=== PATIENT | male | born 1975 | race American Indian/Alaskan Native ===

== ENCOUNTER 2017-11-20 01:55 | Emergency (ER) | payer SELFPAY ==
[2017-11-20] MEDS ORDERED: CATAPRES ONE (03:00)
[2017-11-20] MEDS ORDERED: CATAPRES PO ONE ×2 (03:05→03:44)
[2017-11-20 03:33] LABS: Basophils % (Auto) 0.7 % (0.0-1.8); Eosinophils # (Auto) 0.2 K/mm3 (0.0-0.4); Eosinophils % (Auto) 2.6 % (0.0-4.3); Hematocrit 41.3 % (35.5-45.6); Hemoglobin 13.5 gm/dl (11.8-15.2); Lymphocytes # (Auto) 1.9 K/mm3 (1.2-5.4); Lymphocytes % (Auto) 27.1 % (13.4-35.0); Mean Corpuscular HGB Conc 33 % (32-34); Mean Corpuscular Volume 79 fl (84-94); Monocytes # (Auto) 0.8 K/mm3 (0.0-0.8); Monocytes % (Auto) 11.4 % (0.0-7.3); Platelet Count 177 K/mm3 (140-440); Red Blood Count 5.25 M/mm3 (3.65-5.03); Red Cell Distribution Width 15.8 % (13.2-15.2)
[2017-11-20 03:35] LABS: Mean Corpuscular Hemoglobin 26 pg (28-32)
[2017-11-20] MEDS ORDERED: VIBRAMYCIN PO ONE (03:45)
--- NOTE | 2017-11-20 03:46 | Emergency Department Report ---
- General Chief complaint: High BP Stated complaint: TICK ON RT THIGH Time Seen by Provider: 11/20/17 03:27 Source: patient Mode of arrival: Ambulatory Limitations: No Limitations - History of Present Illness MD complaint: insect bite/sting -: hour(s) Location: [facility] Severity: mild Severity scale (0 -10): 0 Consistency: constant Improves with: none Worsens with: none Context: none Associated symptoms: denies other symptoms Treatments Prior to Arrival: none - Related Data Previous Rx's Medication Instructions Recorded Last Taken Type Lisinopril [Zestril TAB] 20 mg PO QDAY #30 tablet 05/23/16 Unknown Rx amLODIPine [Norvasc] 10 mg PO DAILY #30 tab 05/23/16 Unknown Rx hydrALAZINE [Apresoline TAB] 100 mg PO TID #90 tab 05/23/16 Unknown Rx Doxycycline [Vibramycin CAP] 100 mg PO Q12HR #28 capsule 11/20/17 Unknown Rx cloNIDine [Catapres] 0.2 mg PO BID #14 tablet 11/20/17 Unknown Rx Allergies Allergy/AdvReac Type Severity Reaction Status Date / Time No Known Allergies Allergy Verified 11/20/17 02:52 Abscess Boil HPI - HPI Chief Complaint: High BP Stated Complaint: TICK ON RT THIGH Time Seen by Provider: 11/20/17 03:27 Home Medications: Previous Rx's Medication Instructions Recorded Last Taken Type Lisinopril [Zestril TAB] 20 mg PO QDAY #30 tablet 05/23/16 Unknown Rx amLODIPine [Norvasc] 10 mg PO DAILY #30 tab 05/23/16 Unknown Rx hydrALAZINE [Apresoline TAB] 100 mg PO TID #90 tab 05/23/16 Unknown Rx Doxycycline [Vibramycin CAP] 100 mg PO Q12HR #28 capsule 11/20/17 Unknown Rx cloNIDine [Catapres] 0.2 mg PO BID #14 tablet 11/20/17 Unknown Rx Allergies/Adverse Reactions: Allergies Allergy/AdvReac Type Severity Reaction Status Date / Time No Known Allergies Allergy Verified 11/20/17 02:52 ED Review of Systems ROS: Stated complaint: TICK ON RT THIGH Other details as noted in HPI Other: GENERAL: No weight change, fatigue, weakness, fever, chills, or night sweats SKIN: No changes in skin or hair, no itching, no rashes, no jaundice HEAD: No trauma, headache, or visual changes EYES: No blurriness, tearing, itching, acute visual loss, conjunctival discoloration, or scleral icterus EARS: No hearing loss, tinnitus, vertigo, or earache NOSE: No rhinorrhea, stuffiness, sneezing, itching, or epistaxis MOUTH: No bleeding gums, hoarseness, sore throat, or swelling CARDIAC: No new murmur, chest pain, palpitations, dyspnea on exertion, orthopnea , PND, or edema RESPIRATORY: No shortness of breath, wheeze, cough, sputum production, hemoptysis, pneumonia, asthma, bronchitis, or emphysema GI: No change in appetite, nausea, vomiting, dysphagia, change in bowel frequency, diarrhea, constipation, bleeding, hematemesis, melena, hematochezia, or abdominal pain URINARY: No frequency, urgency, polyuria, dysuria, hematuria, or incontinence MUSCULOSKELETAL: No muscle weakness, joint stiffness, decrease in range of motion, redness, swelling NEUROLOGIC: No loss of sensation, numbness, tingling, tremors, weakness, paralysis, seizures HEMATOLOGIC: No anemia, easy bruising, bleeding, petechiae, or purpura ENDOCRINE: No hot or cold intolerance, sweating, polyuria, polydipsia or, polyphagia no thyroid problems ED Past Medical Hx - Past Medical History Hx Hypertension: Yes Additional medical history: States has not seen a physician in decades. Denies prior medical history. - Surgical History Past Surgical History?: No - Social History Smoking Status: Current Every Day Smoker Substance Use Type: None - Medications Home Medications: Home Medications Medication Instructions Recorded Confirmed Last Taken Type Lisinopril [Zestril TAB] 20 mg PO QDAY #30 tablet 05/23/16 Unknown Rx amLODIPine [Norvasc] 10 mg PO DAILY #30 tab 05/23/16 Unknown Rx hydrALAZINE [Apresoline TAB] 100 mg PO TID #90 tab 05/23/16 Unknown Rx Doxycycline [Vibramycin CAP] 100 mg PO Q12HR #28 capsule 11/20/17 Unknown Rx cloNIDine [Catapres] 0.2 mg PO BID #14 tablet 11/20/17 Unknown Rx ED Physical Exam - General Limitations: No Limitations - Other Other exam information: GENERAL: Patient in no acute distress HEAD: Normocephalic, atraumatic EYES: PERRLA, EOM intact, no scleral icterus, visual chowdary and acuity wnl NOSE: No tenderness, discharge, sinus tenderness MOUTH: No erythema, bleeding, exudate HEART: Regular rate and rhythm, no murmur, S1-S2 are auscultated, pulses are symmetric LUNGS: bilateral breath sounds. No wheezing, rales, rhonchi ABDOMEN: Normal bowel sounds, no tenderness, no rebound, no guarding, no masses , no CVA tenderness MUSCULOSKELETAL: Normal joint range of motion, no redness, no swelling, no tenderness NEUROLOGIC: GCS 15, Alert and Oriented x3, Cranial nerves intact, normal sensation, normal strength, normal gait, no cerebellar deficit PSYCHIATRIC: No homicidal or suicidal ideation, no anxiety, no depression, no hallucinations SKIN: Tick located medial mid right thigh removed. head of tick burried into skin. Skin is warm and dry, no wounds, no rashes ED Course Vital Signs 11/20/17 11/20/17 11/20/17 02:48 03:06 03:07 Temperature 98.8 F Pulse Rate 81 81 Respiratory 18 14 Rate Blood Pressure 205/142 205/142 Blood Pressure [Left] O2 Sat by Pulse 99 Oximetry 11/20/17 11/20/17 11/20/17 04:17 04:53 05:28 Temperature Pulse Rate 66 67 82 Respiratory 14 14 Rate Blood Pressure 165/122 Blood Pressure 166/117 141/96 [Left] O2 Sat by Pulse 98 98 Oximetry ED Medical Decision Making - Lab Data Result diagrams: 11/20/17 02:57 11/20/17 02:57 Laboratory Results - last 24 hr 11/20/17 11/20/17 02:57 02:57 WBC 7.1 RBC 5.25 H Hgb 13.5 Hct 41.3 MCV 79 L MCH 26 L MCHC 33 RDW 15.8 H Plt Count 177 Lymph % (Auto) 27.1 [place] % (Auto) 11.4 H Eos % (Auto) 2.6 Baso % (Auto) 0.7 Lymph # 1.9 [place] # 0.8 Eos # 0.2 Baso # 0.0 Seg Neutrophils % 58.2 Seg Neutrophils # 4.2 Sodium 137 Potassium 3.7 Chloride 99.0 Carbon Dioxide 25 Anion Gap 17 BUN 15 Creatinine 1.5 Estimated GFR > 60 BUN/Creatinine Ratio 10 Glucose 91 Calcium 8.8 Total Bilirubin 0.30 AST 17 ALT 11 Alkaline Phosphatase 87 Total Protein 7.4 Albumin 4.1 Albumin/Globulin Ratio 1.2 - Medical Decision Making Patient comfortable updated with results. Discussed importance of monitoring and controlling BP. Plan discharge with outpatient follow up. Return if worsening. Critical care attestation.: If time is entered above; I have spent that time in minutes in the direct care of this critically ill patient, excluding procedure time. ED Disposition Clinical Impression: Hypertensive urgency Tick bite Qualifiers: Encounter type: initial encounter Qualified Code(s): W57.XXXA - Bitten or stung by nonvenomous insect and other nonvenomous arthropods, initial encounter Disposition: DC- TO HOME OR SELFCARE Is pt being admited?: No Condition: Stable Instructions: Hypertensive Crisis (ED), Tick Bite (ED) Prescriptions: cloNIDine [Catapres] 0.2 mg PO BID #14 tablet Doxycycline [Vibramycin CAP] 100 mg PO Q12HR #28 capsule
[2017-11-20 03:54] LABS: Alanine Aminotransferase 11 units/L (7-56); Albumin 4.1 g/dL (3.9-5); BUN/Creatinine Ratio 10; Blood Urea Nitrogen 15 mg/dL (9-20); Calcium 8.8 mg/dL (8.4-10.2); Hemolysis Index 0
[2017-11-20 05:28] VITALS: BP 141/96
== END 2017-11-20 06:21 | disposition home or self-care (01) ==
LOC: ED 01:55
DX: S81.851A Open bite, right lower leg, initial encounter (principal); I10 Essential (primary) hypertension; F17.200 Nicotine dependence, unspecified, uncomplicated; W57.XXXA Bitten or stung by nonvenomous insect and other nonvenomous arthropods, initial encounter; Y93.89 Activity, other specified; Y92.89 Other specified places as the place of occurrence of the external cause; Y99.8 Other external cause status
CPT/HCPCS: 36415; 80053; 85025; 99284

== ENCOUNTER 2018-06-20 15:07 | Emergency (ER) | payer SELFPAY ==
[2018-06-20] MEDS ORDERED: NACL 0.9% 1000 ML 1,000 ML IV ONE (16:16)
[2018-06-20] MEDS ORDERED: ANTIVERT PO ONE (16:16)
[2018-06-20] MEDS ORDERED: ZOFRAN IV ONE (16:16)
--- NOTE | 2018-06-20 16:20 | Emergency Department Report ---
ED General Adult HPI - General Chief complaint: Dizziness Stated complaint: ETOH Time Seen by Provider: 06/20/18 16:07 Source: patient Mode of arrival: Ambulatory Limitations: No Limitations - History of Present Illness Initial comments: Patient is a 43-year-old Male who states he's been dizzy for the past 3 days. Patient admits to alcohol use this morning. Patient is a poor historian. Patient states that he is not an everyday drinker and he only started drinking this morning but he also stated that he is only dizzy when he drinks but the dizziness is been present for 3 days. Patient states he has some difficulty speaking as well. He denies any weakness of arms or legs, chest pain, shortness of breath, nausea or vomiting. On the second interview of the patient patient's stated that he forgot to tell me that he has some loss of vision in his right eye - Related Data Previous Rx's Medication Instructions Recorded Last Taken Type Lisinopril [Zestril TAB] 20 mg PO QDAY #30 tablet 05/23/16 Unknown Rx amLODIPine [Norvasc] 10 mg PO DAILY #30 tab 05/23/16 Unknown Rx hydrALAZINE [Apresoline TAB] 100 mg PO TID #90 tab 05/23/16 Unknown Rx Doxycycline [Vibramycin CAP] 100 mg PO Q12HR #28 capsule 11/20/17 Unknown Rx cloNIDine [Catapres] 0.2 mg PO BID #14 tablet 11/20/17 Unknown Rx Hyoscyamine Subl [Levsin Sl 0.125 0.125 mg SL Q6HR PRN #20 tab 04/09/18 Unknown Rx TAB] Ondansetron [Zofran Odt] 4 mg PO TID #20 tab.rapdis 04/09/18 Unknown Rx amLODIPine [Norvasc] 10 mg PO DAILY #30 tab 04/09/18 Unknown Rx hydrALAZINE [Apresoline TAB] 10 mg PO Q8H #30 tablet 04/09/18 Unknown Rx Allergies Allergy/AdvReac Type Severity Reaction Status Date / Time No Known Allergies Allergy Verified 04/09/18 09:37 ED Review of Systems ROS: Stated complaint: ETOH Other details as noted in HPI Comment: All other systems reviewed and negative ED Past Medical Hx - Past Medical History Hx Hypertension: Yes Additional medical history: high cholesterol - Surgical History Past Surgical History?: No - Social History Smoking Status: Current Every Day Smoker Substance Use Type: Alcohol - Medications Home Medications: Home Medications Medication Instructions Recorded Confirmed Last Taken Type Lisinopril [Zestril TAB] 20 mg PO QDAY #30 tablet 05/23/16 Unknown Rx amLODIPine [Norvasc] 10 mg PO DAILY #30 tab 05/23/16 Unknown Rx hydrALAZINE [Apresoline TAB] 100 mg PO TID #90 tab 05/23/16 Unknown Rx Doxycycline [Vibramycin CAP] 100 mg PO Q12HR #28 capsule 11/20/17 Unknown Rx cloNIDine [Catapres] 0.2 mg PO BID #14 tablet 11/20/17 Unknown Rx Hyoscyamine Subl [Levsin Sl 0.125 0.125 mg SL Q6HR PRN #20 tab 04/09/18 Unknown Rx TAB] Ondansetron [Zofran Odt] 4 mg PO TID #20 tab.rapdis 04/09/18 Unknown Rx amLODIPine [Norvasc] 10 mg PO DAILY #30 tab 04/09/18 Unknown Rx hydrALAZINE [Apresoline TAB] 10 mg PO Q8H #30 tablet 04/09/18 Unknown Rx ED Physical Exam - General Limitations: No Limitations General appearance: alert, in no apparent distress - Head Head exam: Present: atraumatic, normocephalic - Eye Eye exam: Present: normal appearance - ENT ENT exam: Present: mucous membranes moist - Neck Neck exam: Present: normal inspection - Respiratory Respiratory exam: Present: normal lung sounds bilaterally. Absent: respiratory distress, wheezes, rales, rhonchi - Cardiovascular Cardiovascular Exam: Present: regular rate, normal rhythm, normal heart sounds. Absent: systolic murmur, diastolic murmur, rubs, gallop - GI/Abdominal GI/Abdominal exam: Present: soft, normal bowel sounds. Absent: distended, tenderness, guarding, rebound - Rectal Rectal exam: Present: deferred - Extremities Exam Extremities exam: Present: normal inspection - Back Exam Back exam: Present: normal inspection - Neurological Exam Neurological exam: Present: alert, oriented X3. Absent: CN II-XII intact - Psychiatric Psychiatric exam: Present: normal affect, normal mood - Skin Skin exam: Present: warm, dry, intact, normal color. Absent: rash ED Course Vital Signs 06/20/18 15:13 Temperature 97.4 F L Pulse Rate 101 H Respiratory 16 Rate Blood Pressure 115/79 O2 Sat by Pulse 98 Oximetry - Reevaluation(s) Reevaluation #1: 06/20/18 16:21 Patient is a 43-year-old -[place] male who is presenting with slurred speech and dizziness. Patient states that the symptoms have been present for 3 days and that he only started drinking this morning however he also states that he is only dizzy when he drinks which is inconsistent with his original story. To be on the safe side CT of the head will be done patient also will have basic labs including alcohol and drug screen performed. Patient be monitored for sobriety and reexamined. ED Medical Decision Making - Lab Data Result diagrams: 06/20/18 18:10 06/20/18 16:23 Lab Results 06/20/18 06/20/18 06/20/18 Range/Units 15:13 16:23 16:23 Sodium 134 L (137-145) mmol/L Potassium 3.7 (3.6-5.0) mmol/L Chloride 94.0 L (98-107) mmol/L Carbon Dioxide 28 (22-30) mmol/L Anion Gap 16 mmol/L BUN 19 (9-20) mg/dL Creatinine 3.8 H (0.8-1.5) mg/dL Estimated GFR 21 ml/min BUN/Creatinine Ratio 5 % Glucose 146 H (75-100) mg/dL POC Glucose 167 H (70-105) Calcium 9.4 (8.4-10.2) mg/dL Total Bilirubin 0.30 (0.1-1.2) mg/dL ALT 13 (7-56) units/L Alkaline Phosphatase 98 (35-129) units/L Total Protein 8.2 (6.3-8.2) g/dL Albumin 4.0 (3.9-5) g/dL Albumin/Globulin Ratio 1.0 % Plasma/Serum Alcohol < 0.01 (0-0.07) % - Radiology Data [facility] [address] [place] [address] Cat Scan Report Signed Patient: STACEY VILLAFANA MR#: [id number] : 1975 Acct:[id number] Age/Sex: 43 / M ADM Date: 06/20/18 Loc: ED Attending Dr: Ordering Physician: CHASIDY PATRICK MD Date of Service: 06/20/18 Procedure(s): CT head/brain wo con Accession Number(s): [id number] cc: CHASIDY PATRICK MD FINAL REPORT EXAM: CT HEAD/BRAIN WO CON HISTORY: dizziness and slurred speech TECHNIQUE: 2.5 millimeter axial images from the skullbase to the vertex. Comparison: None FINDINGS: There is an approximately 16 millimeter rounded area of decreased density in the left thalamus with a margin of increased density and associated vasogenic edema in the adjacent brain. There is a mild degree of mass effect on the adjacent brain. There are no other areas of abnormal density or other areas of mass effect. Ventricular size is concordant with the degree of atrophy. The subarachnoid spaces and basilar cisterns are clearly visualized. The visualized portions of the orbits, paranasal and mastoid sinuses are unremarkable. The bony structures are unremarkable in appearance. IMPRESSION: 1. Approximately 16 millimeter nonspecific rounded area of decreased density with a margin of high density in the left thalamus with associated vasogenic edema and mass effect. This is most suggestive of a mass. Differential diagnosis includes a cavernous angioma. The peripheral increased density may represent prominent vascular structures, hemorrhage, calcification or combination thereof. MRI without and with gadolinium is recommended for further evaluation. The above findings and recommendation were discussed with Dr. Patrick at 5:35 p.m. June 20, 2018. Transcribed By: ED Dictated By: CALEB MEI MD Electronically Authenticated By: CALEB MEI MD Signed Date/Time: 06/20/18 9207 - Medical Decision Making Patient is a 43-year-old male who is having dizziness for the last 3 days. Patient also is noted to have issues with his medial right visual field. Patient noted to have a 16 mm round mass in the left thalamus with vasogenic mass effect patient's could have a small hemorrhage associated with this pass. MRI has been suggested as the next diagnostic tests. MRI is not available at this time and neither is neurosurgical consultation. Patient will be transferred [facility] emergency department. I have spoken with Dr. Kohler with neurosurgery and Dr. Cuellar from the ED. Patient has been accepted and transportation is being arranged. Critical Care Time: Yes (30) Critical care attestation.: If time is entered above; I have spent that time in minutes in the direct care of this critically ill patient, excluding procedure time. ED Disposition Clinical Impression: Thalamic mass Disposition: DC/TX-70 ANOTHER TYPE HLTHCARE Is pt being admited?: No Does the pt Need Aspirin: No Condition: Stable Referrals: MONA PALMER MD [Primary Care Provider] - 3-5 Days Time of Disposition: 18:35 - Assessment Assessment Interval: Baseline - Level of Consciousness 1a. Level of Consciousness: alert/keenly responsive - LOC Questions 1b. LOC Questions: answers both correctly - LOC Command 1c. LOC Commands: performs tasks correctly - Best Gaze 2. Best Gaze: normal - Visual 3. Visual: partial hemianopia - Facial Palsy 4. Facial Palsy: normal symmetrical movement - Motor Arm 5b. Motor Arm Right: no drift 5a. Motor Arm Left: no drift - Motor Leg 6b. Motor Leg Right: no drift 6a. Motor Leg Left: no drift - Limb Ataxia 7. Limb Ataxia: absent - Sensory 8. Sensory: normal - Best Language 9. Best Language: no aphasia - Dysarthria 10. Dysarthria: mild/moderate dysarthria - Extinction and Inattention 11. Extinction/Inattention: no abnormality - Scoring Total Score: 2 Stroke Severity: Minor Stroke
[2018-06-20 16:55] LABS: Calcium 9.4 mg/dL (8.4-10.2)
--- NOTE | 2018-06-20 17:39 | Cat Scan Report ---
FINAL REPORT EXAM: CT HEAD/BRAIN WO CON HISTORY: dizziness and slurred speech TECHNIQUE: 2.5 millimeter axial images from the skullbase to the vertex. Comparison: None FINDINGS: There is an approximately 16 millimeter rounded area of decreased density in the left thalamus with a margin of increased density and associated vasogenic edema in the adjacent brain. There is a mild de gree of mass effect on the adjacent brain. There are no other areas of abnormal density or other areas of mass effect. Ventricular size is concordant with the degree of atrophy. The subarachnoid spaces and basilar cisterns are clearly visualized. The visualized portions of the orbits, paranasal and mastoid sinuses are unremarkable. The bony structures are unremarkable in appearance. IMPRESSION: 1. Approximately 16 millimeter nonspecific rounded area of decreased density with a margin of high de nsity in the left thalamus with associated vasogenic edema and mass effect. This is most suggestive o f a mass. Differential diagnosis includes a cavernous angioma. The peripheral increased density may r epresent prominent vascular structures, hemorrhage, calcification or combination thereof. MRI without and with gadolinium is recommended for further evaluation. The above findings and recommendation were discussed with Dr. Patrick at 5:35 p.m. June 20, 2018.
[2018-06-20 18:25] LABS: Basophils % (Auto) 0.4 % (0.0-1.8); Eosinophils # (Auto) 0.1 K/mm3 (0.0-0.4); Eosinophils % (Auto) 1.4 % (0.0-4.3); Hematocrit 42.3 % (35.5-45.6); Hemoglobin 13.8 gm/dl (11.8-15.2); Lymphocytes # (Auto) 1.2 K/mm3 (1.2-5.4); Lymphocytes % (Auto) 16.8 % (13.4-35.0); Mean Corpuscular HGB Conc 33 % (32-34); Mean Corpuscular Volume 76 fl (84-94); Monocytes # (Auto) 0.6 K/mm3 (0.0-0.8); Monocytes % (Auto) 8.8 % (0.0-7.3); Platelet Count 217 K/mm3 (140-440); Red Blood Count 5.56 M/mm3 (3.65-5.03); Red Cell Distribution Width 16.1 % (13.2-15.2)
[2018-06-20 19:38] VITALS: BP 143/86
== END 2018-06-20 19:43 | disposition other institution (70) ==
LOC: ED 15:07
DX: G93.9 Disorder of brain, unspecified (principal); R42 Dizziness and giddiness; H54.7 Unspecified visual loss; I10 Essential (primary) hypertension; E78.00 Pure hypercholesterolemia, unspecified; F17.200 Nicotine dependence, unspecified, uncomplicated
CPT/HCPCS: 36415; 70450; 80053; 82962; 85025; 93005; 93010; 96361; 96374; 99291; G0480; J2405; J7030; 80320

== ENCOUNTER 2018-07-24 09:33 | Emergency (ER) | payer OTHER ==
[2018-07-24 10:45] LABS: Basophils % (Auto) 0.6 % (0.0-1.8); Eosinophils # (Auto) 0.1 K/mm3 (0.0-0.4); Eosinophils % (Auto) 1.9 % (0.0-4.3); Hematocrit 39.3 % (35.5-45.6); Hemoglobin 12.9 gm/dl (11.8-15.2); Lymphocytes # (Auto) 0.8 K/mm3 (1.2-5.4); Lymphocytes % (Auto) 17.5 % (13.4-35.0); Mean Corpuscular HGB Conc 33 % (32-34); Mean Corpuscular Volume 76 fl (84-94); Monocytes # (Auto) 0.4 K/mm3 (0.0-0.8); Monocytes % (Auto) 9.2 % (0.0-7.3); Platelet Count 174 K/mm3 (140-440); Red Blood Count 5.15 M/mm3 (3.65-5.03); Red Cell Distribution Width 17.4 % (13.2-15.2)
--- NOTE | 2018-07-24 10:47 | Cat Scan Report ---
FINAL REPORT EXAM: CT HEAD/BRAIN WO CON HISTORY: neuro deficits < 6hrs or sx present upon awakening TECHNIQUE: CT of the Head without IV contrast. PRIORS: None currently available. FINDINGS: Decreased attenuation regions in the periventricular and subcortical white matter are nonspecific and may represent small vessel ischemic disease, encephalopathy, edema, or a demyelinating process. Smal l vessel ischemic disease (leukoaroaiosis) favored. Vascular calcifications. There is no evidence for acute ischemia. There is no hemorrhage. There is no midline shift. There is no hydrocephalus. There is no mass. Age appropriate dominguez-white matter attenuation is noted. There is no calvarial fracture. The temporal bones demonstrate aerated mastoid air cells. The middle ears appear unremarkable. Opacification of the posterior left ethmoid air cells. Mild mucosal thickening of the right posterior ethmoid air cells. Chronic healed fracture deformity of the left lamina papyracea. Globes are intact. IMPRESSION: No acute intracranial findings. Chronic ischemic disease. Sinus disease.
[2018-07-24 10:55] LABS: INR 0.89 (0.87-1.13)
[2018-07-24 10:56] LABS: Partial Thromboplastin Time 29.7 Sec. (24.2-36.6); Thrombin Time 17.5 Sec. (15.1-19.6)
[2018-07-24 11:13] LABS: BUN/Creatinine Ratio 7; Blood Urea Nitrogen 17 mg/dL (9-20); Calcium 9.1 mg/dL (8.4-10.2); Hemolysis Index 8
--- NOTE | 2018-07-24 12:25 | Emergency Department Report ---
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 Patient states he presented here in June with loss of right eye vision and unsteady gait. He was seen here, had a CT head suspicious for a left thalmus mass, and subsequently transferred to [place] for further evaluation since MRI was not available. Patient states that his workup revealed a stroke and not a mass. He continues to have residual right-sided field deficits and decreased vision. This morning he woke up with left eye blurred vision described as "foggy" vision and worsening unsteady gait. Patient also with shortness of breath. I woke patient up to examine him he states that his vision is back to normal and must have improved while he was sleeping. He denies any pain including headache or chest pain. Patient spent one week at [facility] and filled his medications on the when he was able to afford them. He takes an aspirin 81 mg daily but no Plavix. PMD: none - Related Data Home Medications: Previous Rx's Medication Instructions Recorded Last Taken Type Lisinopril [Zestril TAB] 20 mg PO QDAY #30 tablet 05/23/16 Unknown Rx amLODIPine [Norvasc] 10 mg PO DAILY #30 tab 05/23/16 Unknown Rx hydrALAZINE [Apresoline TAB] 100 mg PO TID #90 tab 05/23/16 Unknown Rx Doxycycline [Vibramycin CAP] 100 mg PO Q12HR #28 capsule 11/20/17 Unknown Rx cloNIDine [Catapres] 0.2 mg PO BID #14 tablet 11/20/17 Unknown Rx Hyoscyamine Subl [Levsin Sl 0.125 0.125 mg SL Q6HR PRN #20 tab 04/09/18 Unknown Rx TAB] Ondansetron [Zofran Odt] 4 mg PO TID #20 tab.rapdis 04/09/18 Unknown Rx amLODIPine [Norvasc] 10 mg PO DAILY #30 tab 04/09/18 Unknown Rx hydrALAZINE [Apresoline TAB] 10 mg PO Q8H #30 tablet 04/09/18 Unknown Rx Allergies/Adverse Reactions: Allergies Allergy/AdvReac Type Severity Reaction Status Date / Time No Known Allergies Allergy Verified 07/24/18 09:38 ED Review of Systems ROS: Stated complaint: BLURR VISION Other details as noted in HPI Comment: All other systems reviewed and negative ED Past Medical Hx - Past Medical History Previous Medical History?: Yes Hx Hypertension: Yes Hx CVA: Yes (right eye problems) Additional medical history: high cholesterol - Surgical History Past Surgical History?: No - Social History Smoking Status: Current Every Day Smoker Substance Use Type: None - Medications Home Medications: Home Medications Medication Instructions Recorded Confirmed Last Taken Type Lisinopril [Zestril TAB] 20 mg PO QDAY #30 tablet 05/23/16 Unknown Rx amLODIPine [Norvasc] 10 mg PO DAILY #30 tab 05/23/16 Unknown Rx hydrALAZINE [Apresoline TAB] 100 mg PO TID #90 tab 05/23/16 Unknown Rx Doxycycline [Vibramycin CAP] 100 mg PO Q12HR #28 capsule 11/20/17 Unknown Rx cloNIDine [Catapres] 0.2 mg PO BID #14 tablet 11/20/17 Unknown Rx Hyoscyamine Subl [Levsin Sl 0.125 0.125 mg SL Q6HR PRN #20 tab 04/09/18 Unknown Rx TAB] Ondansetron [Zofran Odt] 4 mg PO TID #20 tab.rapdis 04/09/18 Unknown Rx amLODIPine [Norvasc] 10 mg PO DAILY #30 tab 04/09/18 Unknown Rx hydrALAZINE [Apresoline TAB] 10 mg PO Q8H #30 tablet 04/09/18 Unknown Rx ED Neuro Physical Exam - General Limitations: No Limitations Suspected Stroke: Yes - NIHSS Assessment Interval: Baseline 1a. Level of Consciousness: alert/keenly responsive 1b. LOC Questions: answers both correctly 1c. LOC Commands: performs tasks correctly 2. Best Gaze: normal 3. Visual: partial hemianopia (right eye chronic) 4. Facial Palsy: normal symmetrical movement 5b. Motor Arm Right: no drift 5a. Motor Arm Left: no drift 6a. Motor Leg Left: no drift 6b. Motor Leg Right: no drift 7. Limb Ataxia: absent 8. Sensory: normal 9. Best Language: no aphasia 10. Dysarthria: normal 11. Extinction/Inattention: no abnormality Total Score: 1 Stroke Severity: Minor Stroke - Other Other exam information: General: No limitations, patient is alert in no acute distress Head exam: Atraumatic, normocephalic Eyes exam: Normal appearance, pupils equal reactive to light, extraocular movements intact. Right medial visual field defect and blurry vision. ENT: Moist mucous membrane, normal oropharynx Neck exam: Normal inspection, full range of motion, no meningismus nontender Respiratory exam: Clear to auscultation bilateral, no wheezes, rales, crackles Cardiovascular: Normal rate and rhythm Abdomen: Soft, nondistended, and nontender, with normal bowel sounds, no rebou nd, or guarding Extremity: Full range of motion normal inspection no deformity Back: Normal Inspection, full range of motion, no tenderness Neurologic: Alert, oriented x3, see NIH stroke scale Psychiatric: normal affect, normal mood Skin: Warm, dry, intact ED Course Vital Signs 07/24/18 07/24/18 07/24/18 10:01 10:55 10:56 Temperature 97.5 F L 97.6 F Pulse Rate 70 59 L Respiratory 16 14 14 Rate Blood Pressure 119/63 Blood Pressure 119/67 [Left] O2 Sat by Pulse 96 98 98 Oximetry - Lab Data Result diagrams: 07/24/18 10:31 07/24/18 10:31 Lab Results 07/24/18 07/24/18 07/24/18 Range/Units 10:31 10:31 10:31 WBC 4.6 (4.5-11.0) K/mm3 RBC 5.15 H (3.65-5.03) M/mm3 Hgb 12.9 (11.8-15.2) gm/dl Hct 39.3 (35.5-45.6) % MCV 76 L (84-94) fl MCH 25 L (28-32) pg MCHC 33 (32-34) % RDW 17.4 H (13.2-15.2) % Plt Count 174 (140-440) K/mm3 Lymph % (Auto) 17.5 (13.4-35.0) % [place] % (Auto) 9.2 H (0.0-7.3) % Eos % (Auto) 1.9 (0.0-4.3) % Baso % (Auto) 0.6 (0.0-1.8) % Lymph # 0.8 L (1.2-5.4) K/mm3 [place] # 0.4 (0.0-0.8) K/mm3 Eos # 0.1 (0.0-0.4) K/mm3 Baso # 0.0 (0.0-0.1) K/mm3 Seg Neutrophils % 70.8 H (40.0-70.0) % Seg Neutrophils # 3.3 (1.8-7.7) K/mm3 PT 12.6 (12.2-14.9) Sec. INR 0.89 (0.87-1.13) APTT 29.7 (24.2-36.6) Sec. Thrombin Time 17.5 (15.1-19.6) Sec. Sodium 141 (137-145) mmol/L Potassium 4.2 (3.6-5.0) mmol/L Chloride 108.1 H (98-107) mmol/L Carbon Dioxide 21 L (22-30) mmol/L Anion Gap 16 mmol/L BUN 17 (9-20) mg/dL Creatinine 2.6 H (0.8-1.5) mg/dL Estimated GFR 33 ml/min BUN/Creatinine Ratio 7 % Glucose 107 H (75-100) mg/dL Calcium 9.1 (8.4-10.2) mg/dL Troponin T < 0.010 (0.00-0.029) ng/mL - EKG Data -: EKG Interpreted by Id EKG shows normal: sinus rhythm (qrsd 104 lat t wave inv), axis (qrs -35), QRS complexes (qrsd 104) Rate: bradycardia (58) - Radiology Data Radiology results: report reviewed FINAL REPORT EXAM: CT HEAD/BRAIN WO CON HISTORY: neuro deficits lt; 6hrs or sx present upon awakening TECHNIQUE: CT of the Head without IV contrast. PRIORS: None currently available. FINDINGS: Decreased attenuation regions in the periventricular and subcortical white matter are nonspecific and may represent small vessel ischemic disease, encephalopathy, edema, or a demyelinating process. Small vessel ischemic disease (leukoaroaiosis) favored. Vascular calcifications. There is no evidence for acute ischemia. There is no hemorrhage. There is no midline shift. There is no hydrocephalus. There is no mass. Age appropriate dominguez-white matter attenuation is noted. There is no calvarial fracture. The temporal bones demonstrate aerated mastoid air cells. The middle ears appear unremarkable. Opacification of the posterior left ethmoid air cells. Mild mucosal thickening of the right posterior ethmoid air cells. Chronic healed fracture deformity of the left lamina papyracea. Globes are intact. IMPRESSION: No acute intracranial findings. Chronic ischemic disease. Sinus disease. - Medical Decision Making Patient has a residual right eye deficits that have been chronic since June. Left eye deficits today. Spontaneously improved prior to my evaluation. Previous records requested from [facility]. The patient will be admitted to the hospital for further workup. Hospitalist informed - Differential Diagnosis CVA, TIA, encephalopathy - Thrombolytic Inclusion/Exclusion Thrombolytic Exclusion Criteria: Onset of Symptoms Unknown (patient woke up this morning at a unknown time with the symptoms) Critical Care Time: No Critical care attestation.: If time is entered above; I have spent that time in minutes in the direct care of this critically ill patient, excluding procedure time. ED Disposition Clinical Impression: Transient vision disturbance of left eye, Status post CVA, Visual field defect of right eye Disposition: DC-09 OP ADMIT IP TO THIS HOSP Is pt being admited?: Yes Condition: Stable Time of Disposition: 12:27 (Dr Kelley/hosp)
--- NOTE | 2018-07-24 12:29 | History and Physical Report ---
Medications and Allergies Allergies Allergy/AdvReac Type Severity Reaction Status Date / Time No Known Allergies Allergy Verified 07/24/18 09:38 Home Medications Medication Instructions Recorded Confirmed Last Taken Type Lisinopril [Zestril TAB] 20 mg PO QDAY #30 tablet 05/23/16 Unknown Rx amLODIPine [Norvasc] 10 mg PO DAILY #30 tab 05/23/16 Unknown Rx hydrALAZINE [Apresoline TAB] 100 mg PO TID #90 tab 05/23/16 Unknown Rx Doxycycline [Vibramycin CAP] 100 mg PO Q12HR #28 capsule 11/20/17 Unknown Rx cloNIDine [Catapres] 0.2 mg PO BID #14 tablet 11/20/17 Unknown Rx Hyoscyamine Subl [Levsin Sl 0.125 0.125 mg SL Q6HR PRN #20 tab 04/09/18 Unknown Rx TAB] Ondansetron [Zofran Odt] 4 mg PO TID #20 tab.rapdis 04/09/18 Unknown Rx amLODIPine [Norvasc] 10 mg PO DAILY #30 tab 04/09/18 Unknown Rx hydrALAZINE [Apresoline TAB] 10 mg PO Q8H #30 tablet 04/09/18 Unknown Rx Exam - Constitutional Vitals: Temp Pulse Resp BP Pulse Ox 97.6 F 59 L 14 119/67 98 07/24/18 10:55 07/24/18 10:55 07/24/18 10:56 07/24/18 10:55 07/24/18 10:56 Results - Labs CBC & Chem 7: 07/24/18 10:31 07/24/18 10:31 Labs: Abnormal lab results 07/24/18 07/24/18 Range/Units 10:31 10:31 RBC 5.15 H (3.65-5.03) M/mm3 MCV 76 L (84-94) fl MCH 25 L (28-32) pg RDW 17.4 H (13.2-15.2) % [place] % (Auto) 9.2 H (0.0-7.3) % Lymph # 0.8 L (1.2-5.4) K/mm3 Seg Neutrophils % 70.8 H (40.0-70.0) % Chloride 108.1 H (98-107) mmol/L Carbon Dioxide 21 L (22-30) mmol/L Creatinine 2.6 H (0.8-1.5) mg/dL Glucose 107 H (75-100) mg/dL
--- NOTE | 2018-07-24 14:03 | XRay Report ---
AP CHEST: HISTORY: Short of breath AP view of the chest demonstrates a normal mediastinal and cardiac contour with clear lungs and normal bony and soft tissue structures. IMPRESSION: Unremarkable AP chest.
--- NOTE | 2018-07-24 16:56 | Event Note ---
Date: 07/24/18 43 YO Male with CVA presents to ED for evaluation or blurred vision and unsteady gait. Pt seen and evaluated in ED and found to have Chronic blurred vision and unsteady gait. Pt medical records requested from [facility]. Pt symptoms and exam findings unchanged. Pt medically optimized and discharged home and instructed to continue prehospital care. Pt instructed to F/U pcp 3-5 days, as well as Neurology PRN. General: No limitations, patient is alert in no acute distress Head exam: Atraumatic, normocephalic Eyes exam: Normal appearance, pupils equal reactive to light, extraocular movements intact. Right medial visual field defect and blurry vision. ENT: Moist mucous membrane, normal oropharynx Neck exam: Normal inspection, full range of motion, no meningismus nontender Respiratory exam: Clear to auscultation bilateral, no wheezes, rales, crackles Cardiovascular: Normal rate and rhythm Abdomen: Soft, nondistended, and nontender, with normal bowel sounds, no rebound, or guarding Extremity: Full range of motion normal inspection no deformity Back: Normal Inspection, full range of motion, no tenderness Neurologic: Alert, oriented x3, see NIH stroke scale Psychiatric: normal affect, normal mood Skin: Warm, dry, intact
[2018-07-24 17:48] VITALS: BP 111/94
== END 2018-07-24 17:49 | disposition admitted as inpatient to this hospital (09) ==
LOC: ED 09:33
DX: H53.122 Transient visual loss, left eye (principal); H53.451 Other localized visual field defect, right eye; I10 Essential (primary) hypertension; E78.00 Pure hypercholesterolemia, unspecified; F17.200 Nicotine dependence, unspecified, uncomplicated; Z86.73 Personal history of transient ischemic attack (TIA), and cerebral infarction without residual deficits
CPT/HCPCS: 36415; 70450; 71045; 80048; 82962; 84484; 85025; 85610; 85670; 85730; 93005; 93010